=== PATIENT | female | born 1955 | race African-American/Black ===

== ENCOUNTER 2024-01-27 10:09 | Emergency (ER) | payer MEDICARE, OTHER, SELFPAY ==
[2024-01-27 10:23] VITALS: BP 139/79
[2024-01-27] MEDS: NSS 1000 IV (12:20)
[2024-01-27 12:35] LABS: % Basophils 0.7 % (0-2); % Eosinophils 0.9 % (0-6); % Immature Granulocytes 0.3 % (0-0.5); % Lymphocytes 35.6 % (20.5-51.1); % Monocytes 8.2 % (1.7-9.3); % Neutrophils 54.3 % (42.2-75.2); Absolute Basophils 0.1 10^3/uL (0-0.2); Absolute Eosinophils 0.1 10^3/uL (0-0.7); Absolute Lymphocytes 3.5 10^3/uL (1.2-3.4); Absolute Monocytes 0.8 10^3/uL (0.1-0.6); Absolute Neutrophils 5.3 10^3/uL (1.4-6.5); Hematocrit 42.8 % (37.0-47.0); Hemoglobin 14.7 g/dL (12.0-16.0); Mean Corp Hgb Conc. 34.3 g/dL (33.0-37.0); Mean Corpuscular Hgb 29.7 pg (27.0-31.0); Mean Corpuscular Volume 86.5 fL (81.0-99.0); Mean Platelet Volume 10.4 fL (7.4-10.4); Nucleated Red Blood Cells % 0 %; Platelet Count 240 10^3/uL (130-400); Red Blood Cell Count 4.95 10^6/uL (4.20-5.40); Red Cell Dist. Width 13.3 % (11.5-14.5); White Blood Cell Count 9.7 10^3/uL (4.8-10.8)
[2024-01-27 13:07] VITALS: BMI 23.8
[2024-01-27 14:03] LABS: ALT (SGPT) 26 U/L (0-35); AST (SGOT) 35 U/L (14-36); Albumin 4.4 g/dl (3.5-5.0); Alkaline Phosphatase 67 U/L (38-126); Blood Urea Nitrogen 9 mg/dl (7-17); Calcium 9.9 mg/dl (8.4-10.2); Carbon Dioxide 31 mmol/L (22-30); Chloride 99 mmol/L (98-107); Estimated Creatinine Clearance 70 ml/min; Glucose 121 mg/dl (70-99); Potassium 4.4 mmol/L (3.5-5.1); Sodium 139 mmol/L (135-145); Total Bilirubin 0.4 mg/dl (0.2-1.3); Total Protein 7.4 g/dl (6.3-8.2); eGFR > 60.00
--- NOTE | 2024-01-27 14:21 | ED.GENMED ---
History of Present Illness
General
Chief Complaint: Fatigue
Source: patient
Time Seen by Provider: 01/27/24 11:06
History of Present Illness
History of Present Illness:
68-year-old female who presents with persistent uncontrollable loose stool. The patient states that has been going on for 3 weeks. She was seen at [facility] for which she states was 3 different visits. She states she would like to move her care
here and wanted to get seen here. She has had a colonoscopy in the past. She has not had a colonoscopy for this illness. She reports she had a CAT scan of the abdomen and was told everything was okay. Patient was just concerned because she
states that she can barely control it. Denies any improvement with Imodium. Was also put on a separate antidiarrheal by [facility]. No fevers. No pain in the abdomen but does have occasional cramping. Denies melena or hematochezia
Past History
Past History
ED Past Medical History: HTN, Hypercholesterolemia, IDDM and Other (Irritable bowel syndrome, insulin-dependent diabetes, peripheral vascular disease)
Phy Exam
Physical Exam
Physical Exam:
CONSTITUTIONAL Patient alert and oriented to person, place and time. Well-appearing. Vital signs reviewed.
HEAD atraumatic, normocephalic.
EYES eyelids normal to inspection, Extraocular muscles intact, Conjunctiva normal, Sclera normal.
NECK normal range of motion, Trachea midline, no jugular venous distention.
RESPIRATORY CHEST No respiratory distress noted, Chest expansion equal, Bilateral breath sounds clear.
CARDIOVASCULAR regular rate and rhythm, Heart sounds normal.
ABDOMEN abdomen nontender, Bowel sounds normal. No distention.
BACK normal inspection, no obvious deformities
UPPER EXTREMITY range of motion normal, Motor strength normal, no cyanosis, no edema.
LOWER EXTREMITY range of motion normal, Motor strength normal, no cyanosis, no edema.
NEURO Speech normal, No focal motor deficits, Ben coma scale 15, Memory normal, Cranial Nerves intact to screening exam.
SKIN skin warm, dry, and normal in color.
Course
Orders/Labs/Results
Orders:
Orders
01/27/24 12:11
0.9% Sodium Chloride 1000 ml [Nss] 1,000 ml IV BOLUS
01/27/24 12:12
Abdomen Xray - 1 View [CR Abdomen - 1 View] Urgent
Comment:
Reason For Exam: abd distention, stool changes
01/27/24 12:19
Complete Blood Count/With Diff Urgent
01/27/24 13:17
STOOL [C difficile Antigen & Toxins] Urgent
TONY Source: Feces/Stool
Specimen Description:
Date Specimen was Collected: 01/27/24
Time Specimen was Collected: 13:09
Stool Culture Urgent
TONY Source: Feces/Stool
Specimen Description:
Date Specimen was Collected: 01/27/24
Time Specimen was Collected: 13:09
01/27/24 13:18
Comprehensive Metabolic Panel Urgent
Magnesium Urgent
Abnormal Lab Results
01/27/24 01/27/24
12:19 13:18
Absolute Lymphs (auto) 3.5 H 10^3/uL
(1.2-3.4)
Absolute Monos (auto) 0.8 H 10^3/uL
(0.1-0.6)
Carbon Dioxide 31 H mmol/L
(22-30)
Glucose 121 H mg/dl
(70-99)
01/27/24 12:19
01/27/24 13:18
Vital Signs
Initial and Last Documented VS:
Initial Vital Signs
Temp Pulse Resp BP Pulse Ox
98.2 F 98 16 139/79 98
01/27/24 10:23 01/27/24 10:23 01/27/24 10:23 01/27/24 10:23 01/27/24 10:23
Last Documented Vital Signs
Temp Pulse Resp BP Pulse Ox
98.2 F 98 16 139/79 98
01/27/24 10:23 01/27/24 10:23 01/27/24 10:23 01/27/24 10:23 01/27/24 10:23
MDM/Problems Addressed
MDM/Problems Addressed:
Acute diarrhea
*Pulse Oximetry
Patient hypoxic: no
*Critical Care Note
Total Time (30-74mins, 75-104mins- exclusive of procedures): Not Applicable
Data Reviewed
Source: patient
Prescriptions/Medications Considered But Not Given:
Considered antibiotics but white count normal, abdomen benign and C. difficile negative. Await culture
Patient Management
Escalation/DeEscalation of care consider admission/obs:
pt appears well. abd benign. WBC nl.. cultures sent. given IVF's. she would like to stay in hospital but no current indication. does need outpt GI f/u.
ED Attending Note
-
Portions of this chart may have been created with voice recognition software.� Occasional wrong word or��sound alike� substitutions may have occurred due to the inherent limitations of voice recognition software.
Discharge Plan
Departure
Patient Disposition: Home (Routine Discharge)
Date of Disposition: 01/27/24
Time of Disposition: 14:41
Patient with high blood pressure during this ER visit?: No
Discharge Problem:
Diarrhea
Instructions: Acute Diarrhea
Prescriptions:
New
dicyclomine 20 mg tablet
20 mg PO QID PRN (Reason: abdominal cramping) Qty: 20 0RF
Referrals:
Dat Lewis MD [Family Provider] -
Activity Restrictions/Additional Instructions:
Please see your doctor in follow-up in the next 1 week. Please also follow-up with gastroenterology for further evaluation and workup in the next 1 month. Return immediately for bloody stools, fevers, vomiting, pain or any other concerns. Stool
cultures are pending and if they are abnormal we will call you with the result. If you are unable to eat a regular diet, it is important that you lower your dose of insulin. Please discuss this with your window dresser.
Interventions
Interventions:
ED- Fall Risk Assessment Last Done: 01/27/24 13:07
Discharge Date and Time
Print Language: MONEGASQUE
[2024-01-27 14:40] VITALS: BP 96/67
== END 2024-01-27 15:01 | disposition home or self-care (01) ==
LOC: EMR 10:09
PROVIDERS: EMERGENCY PHYSICIAN Emergency Medicine; FAMILY PHYSICIAN Internal Medicine
DX: R19.7 Diarrhea, unspecified (principal); I10 Essential (primary) hypertension; E78.00 Pure hypercholesterolemia, unspecified; E11.51 Type 2 diabetes mellitus with diabetic peripheral angiopathy without gangrene; K58.0 Irritable bowel syndrome with diarrhea; Z79.4 Long term (current) use of insulin
CPT/HCPCS: 99283; 96360; 74018; 80053; 83735; 85025; 87045; 87046; 87077; 87324; 87427; 87449